=== PATIENT | male | born 1965 | race Caucasian/White ===

== ENCOUNTER 2020-05-06 07:13 | Emergency (ER) | payer OTHER ==
[~2020-05-06] VITALS: Ht 188 cm; Wt 117.9 kg
--- NOTE | ~2020-05-06 | EMS ---
[facility] [address] [place] [address] EMS Patient Care Report Name: CASSIUS BROWER Room #: REG MEAGHAN Ortez#: [id number] Admission: 05/06/20 Attend Phys: Discharge: Date of : 63 Report #: [id number] THIS REPORT FOR: //name// Report Transmitted: 05/06/2020 07:13 EMS Care Summary [facility] MED-ACT Incident [id number] @ 05/06/2020 06:21 Incident [address] [place] [address] Patient TEZ BROWER Male, 55 Years 1965 Patient Address [address] [place] [address] Patient History None Reported, Patient Allergies No known allergies, Patient Medications Other, Chief Complaint "I just got so dizzy and sweaty" Disposition Transported No Lights/[place] Reason Unconscious/Fainting Transported To [facility] Narrative [id number] responded to a residence for a report of dizziness and sweating. Upon arrival we found a 55 year old man laying in his bed, his present. He stated that he awoke this morning and suddenly became dizzy and sweaty. He stated that he got up to go to the bathroom and started sweating more and had [facility] [address] [place] [address] EMS Patient Care Report Name: CASSIUS BROWER Room #: REG Neelima#: [id number] Admission: 05/06/20 Attend Phys: Discharge: Date of : 63 Report #: [id number] to lay back down. His then called 911 when it was not subsiding. He stated that this has not happened before, however he has had some issues with and eye "going off", he described one would point up and the other straight on. He had a picture of it on his phone to show the doctor. He stated that had been ongoing for about a month, however he had no associated dizziness with it. He was alert and oriented, able to answer questions. He denied headache, the dizziness had mostly subsided by the time we had arrived. He denied nausea or vomiting. He was able to move all extremities equally and with purpose. He denied any recent weakness. He reported no recent illness and had not bee traveling or around anyone ill. He stated that his job is stressful, more so recently. Vital signs obtained, 12-lead obtained. He was able to slid to the bed, he was secured with the straps and [place] [facility] initiated, 12-lead and vitals repeated, he was then transported to [facility]. He was taken to room 8 and care was transferred to RN. Initial Vitals @06:36P: 76,SpO2: 99,SC Suspected: false @06:57P: 67,Pain: 0/10,SpO2: 98,SC Suspected: false @07:02P: 68,R: 18,BP: 158/57,Pain: 0/10,GCS: 15,SpO2: 98,Revised Trauma: 12, @06:49P: 67,R: 18,BP: 153/85,Pain: 0/10,GCS: 15,Glucose: 127,SpO2: 97,Revised Trauma: 12, @06:35P: 71,R: 20,BP: 156/90,Pain: 0/10,GCS: 15,SpO2: 98,Revised Trauma: 12, Assessments @06:34MENTAL:Person Oriented,Time Oriented,Event Oriented,Place Oriented,SKIN:Diaphoresis,HEENT:Head/Face: No Abnormalities,Eyes: No Abnormalities,Neck/Airway: No Abnormalities,LUNG SOUNDS:General: No Abnormalities,Left Upper: No Abnormalities,Right Upper: No Abnormalities,Left Lower: No Abnormalities,Right Lower: No Abnormalities,ABDOMEN:General: No Abnormalities,Left Upper: No Abnormalities,Right Upper: No Abnormalities,Left Lower: No Abnormalities,Right Lower: No Abnormalities,PELVIS//GI:No Abnormalities,EXTREMITIES:Left Arm: No Abnormalities,Right Arm: No Abnormalities,Left Leg: No Abnormalities,Right Leg: No Abnormalities,PULSE:Radial: 2+ Normal,NEURO:No Abnormalities, Impression Dizziness Procedures @06:3612-Lead ECGResponse: UnchangedSucceeded@06:5712-Lead ECGResponse: UnchangedSucceeded [address] [address] EMS Patient Care Report Name: CASSIUS BROWER Room #: REG MEAGHAN Ortez#: [id number] Admission: 05/06/20 Attend Phys: Discharge: Date of : 63 Report #: [id number] Timeline 06:21,Call Received 06:21,Psap Call 06:21,Dispatched 06:22,En Route 06:31,On Scene 06:32,At Patient 06:35,BP: 156/90 M,PULSE: 71,RR: 20 R,SPO2: 98 Ox,ETCO2: ,BG: ,PAIN: 0,GCS: 15, 06:36,12-Lead ECG,Response: UnchangedSucceeded, 06:36,BP: / M,PULSE: 76,RR: R,SPO2: 99 Ox,ETCO2: ,BG: ,PAIN: ,GCS: , 06:49,BP: 153/85 M,PULSE: 67,RR: 18 R,SPO2: 97 Ox,ETCO2: ,B,PAIN: 0,GCS: 15, 06:51,Depart Scene 06:57,12-Lead ECG,Response: UnchangedSucceeded, 06:57,BP: / M,PULSE: 67,RR: R,SPO2: 98 Ox,ETCO2: ,BG: ,PAIN: 0,GCS: , 07:02,BP: 158/57 M,PULSE: 68,RR: 18 R,SPO2: 98 Ox,ETCO2: ,BG: ,PAIN: 0,GCS: 15, 07:21,At Destination 07:30,Call Closed Disclaimer v1.1 Copyright 2020 [employer] This EMS Care Summary contains data elements from the applicable legal record (which may be displayed differently). It is designed to provide pertinent information for the following purposes: continuity of care, clinical quality, and state data reporting. The complete legal record is available to ED staff and administrators of the receiving hospital in [employer]'s Patient Tracker. All data is provided "as is."
--- NOTE | ~2020-05-06 | EMS ---
[facility] [address] [place] [address] EMS Patient Care Report Name: CASSIUS BROWER Room #: DEP MEAGHAN Ortez#: [id number] Admission: 05/06/20 Attend Phys: Discharge: 05/06/20 Date of : 63 Report #: [id number] THIS REPORT FOR: //name// Report Transmitted: 05/07/2020 22:35 EMS Care Summary [facility] MED-ACT Incident [id number] @ 05/06/2020 06:21 Incident Location [address] [place] [address] Patient TEZ BROWER Male, 55 Years 1965 Patient Address [address] [place] [address] Patient History None Reported, Patient Allergies No known allergies, Patient Medications Other, Chief Complaint "I just got so dizzy and sweaty" Disposition Transported No Lights/[place] Reason Unconscious/Fainting Transported To [facility] Narrative M1145 responded to a residence for a report of dizziness and sweating. Upon arrival we found a 55 year old man laying in his bed, his present. He stated that he awoke this morning and suddenly became dizzy and sweaty. He stated that he got up to go to the bathroom and started sweating more and had [facility] [address] [place] [address] EMS Patient Care Report Name: CASSIUS BROWER Room #: DEP Costa#: [id number] Admission: 05/06/20 Attend Phys: Discharge: 05/06/20 Date of : 63 Report #: [id number] to lay back down. His then called 911 when it was not subsiding. He stated that this has not happened before, however he has had some issues with and eye "going off", he described one would point up and the other straight on. He had a picture of it on his phone to show the doctor. He stated that had been ongoing for about a month, however he had no associated dizziness with it. He was alert and oriented, able to answer questions. He denied headache, the dizziness had mostly subsided by the time we had arrived. He denied nausea or vomiting. He was able to move all extremities equally and with purpose. He denied any recent weakness. He reported no recent illness and had not bee traveling or around anyone ill. He stated that his job is stressful, more so recently. Vital signs obtained, 12-lead obtained. He was able to slid to the bed, he was secured with the straps and taken to [facility]. IV initiated, 12-lead and vitals repeated, he was then transported to [facility]. He was taken to room 8 and care was transferred to RN. Initial Vitals @06:36P: 76,SpO2: 99,IN Suspected: false @06:57P: 67,Pain: 0/10,SpO2: 98,IN Suspected: false @07:02P: 68,R: 18,BP: 158/57,Pain: 0/10,GCS: 15,SpO2: 98,Revised Trauma: 12, @06:49P: 67,R: 18,BP: 153/85,Pain: 0/10,GCS: 15,Glucose: 127,SpO2: 97,Revised Trauma: 12, @06:35P: 71,R: 20,BP: 156/90,Pain: 0/10,GCS: 15,SpO2: 98,Revised Trauma: 12, Assessments @06:34MENTAL:Person Oriented,Time Oriented,Event Oriented,Place Oriented,SKIN:Diaphoresis,HEENT:Head/Face: No Abnormalities,Eyes: No Abnormalities,Neck/Airway: No Abnormalities,LUNG SOUNDS:General: No Abnormalities,Left Upper: No Abnormalities,Right Upper: No Abnormalities,Left Lower: No Abnormalities,Right Lower: No Abnormalities,ABDOMEN:General: No Abnormalities,Left Upper: No Abnormalities,Right Upper: No Abnormalities,Left Lower: No Abnormalities,Right Lower: No Abnormalities,PELVIS//GI:No Abnormalities,EXTREMITIES:Left Arm: No Abnormalities,Right Arm: No Abnormalities,Left Leg: No Abnormalities,Right Leg: No Abnormalities,PULSE:Radial: 2+ Normal,NEURO:No Abnormalities, Impression Dizziness Procedures @06:3612-Lead ECGResponse: UnchangedSucceeded@06:5712-Lead ECGResponse: UnchangedSucceeded [address] [address] EMS Patient Care Report Name: CASSIUS BROWER Room #: [facility] Neelima#: [id number] Admission: 05/06/20 Attend Phys: Discharge: 05/06/20 Date of : 63 Report #: [id number] Timeline 06:21,Call Received 06:21,Psap Call 06:21,Dispatched 06:22,En Route 06:31,On Scene 06:32,At Patient 06:35,BP: 156/90 M,PULSE: 71,RR: 20 R,SPO2: 98 Ox,ETCO2: ,BG: ,PAIN: 0,GCS: 15, 06:36,12-Lead ECG,Response: UnchangedSucceeded, 06:36,BP: / M,PULSE: 76,RR: R,SPO2: 99 Ox,ETCO2: ,BG: ,PAIN: ,GCS: , 06:49,BP: 153/85 M,PULSE: 67,RR: 18 R,SPO2: 97 Ox,ETCO2: ,B,PAIN: 0,GCS: 15, 06:51,Depart Scene 06:57,12-Lead ECG,Response: UnchangedSucceeded, 06:57,BP: / M,PULSE: 67,RR: R,SPO2: 98 Ox,ETCO2: ,BG: ,PAIN: 0,GCS: , 07:02,BP: 158/57 M,PULSE: 68,RR: 18 R,SPO2: 98 Ox,ETCO2: ,BG: ,PAIN: 0,GCS: 15, 07:21,At Destination 07:30,Call Closed Disclaimer v1.1 Copyright 2020 [employer] This EMS Care Summary contains data elements from the applicable legal record (which may be displayed differently). It is designed to provide pertinent information for the following purposes: continuity of care, clinical quality, and state data reporting. The complete legal record is available to ED staff and administrators of the receiving hospital in [employer]'s Patient Tracker. All data is provided "as is."
[2020-05-06] MEDS ORDERED: CREATINE100 GM PO (07:19)
--- NOTE | 2020-05-06 07:42 | EKG ---
[facility] [address] [place] [address] ELECTROCARDIOGRAM REPORT Name: CASSIUS BROWER [facility]R.#: [id number] Admission: Attend Phys: Discharge: Date of : 63 Report #: [id number] THIS REPORT FOR: cc: NO FAMILY PHYSICIAN or PCP NO FAMILY PHYSICIAN or PCP Troy Chacon MD [facility] ~ THIS REPORT FOR: //name// [facility] ED Test Date: 2020-05-06 Test Time: 07:31:41 Pat Name: CASSIUS BROWER Department: Room: Gender: Manager Trade: brenda : 1965 Requested By: Jace Vasquez Order Number: [id number] MD: Troy Chacon Measurements Intervals [place] Rate: 58 P: 59 VT: 228 QRS: 51 QRSD: 101 T: 10 QT: 408 QTc: 401 Interpretive Statements Sinusbradycardia Prolonged VT interval Probable anteroseptal infarct, old No previous ECG available for comparison Electronically Signed On 05-06-2020 7:42:08 CDT by Troy Chacon [email or web address] <ELECTRONICALLY SIGNED> By: Troy Chacon MD, [facility] 05/06/20 0742 0731 0 Troy Chacon MD, FACC /EPI
[2020-05-06 07:48] LABS: HEMATOCRIT 45.1 % (42.0-52.0); HEMOGLOBIN 15.8 gm/dL (14.0-18.0); MCH 30.4 pg (26.0-34.0); MCV 87.1 fL (80.0-100.0); RBC 5.17 mil/uL (4.50-6.00); RDW 13.4 % (10.5-14.5); WBC 3.4 thou/uL (4.0-11.0)
[2020-05-06 07:54] LABS: ANION GAP 12 mmol/L (7-16); BUN 21 mg/dL (7-18); CALCIUM 8.6 mg/dL (8.5-10.1); CHLORIDE 104 mmol/L (98-107); CO2 24 mmol/L (21-32); GLUCOSE 115 mg/dL (74-106); POTASSIUM 3.5 mmol/L (3.5-5.1); SODIUM 140 mmol/L (136-145)
[2020-05-06 08:01] LABS: TROPONIN-I <0.06 ng/mL (<0.06)
[2020-05-06] MEDS ORDERED: MECLIZINE HCL25 M1 PO (10:06)
[2020-05-06 10:10] VITALS: BP 148/87
== END 2020-05-06 10:20 | disposition home or self-care (01) ==
LOC: ER 07:13
PROVIDERS: Emergency Medicine
DX: R42 Dizziness and giddiness (principal); R61 Generalized hyperhidrosis; Z79.899 Other long term (current) drug therapy